=== PATIENT | female | born 1945 | race Caucasian/White ===

== ENCOUNTER 2020-04-28 06:38 | Outpatient (REF) | payer OTHER, SELFPAY ==
[2020-04-28 08:40] LABS: Estimated Average Glucose 123 mg/dL; Hemoglobin A1c % 5.9 %
[2020-04-28 08:58] LABS: Alanine Aminotransferase 31 U/L (0-31); Albumin Level 4.2 g/dL (3.5-5.0); Alkaline Phosphatase 56 U/L (39-117); Anion Gap 12 (12-20); Aspartate Amino Transferase 29 U/L (5-31); Bilirubin Total 0.9 mg/dL (0.0-1.0); Blood Urea Nitrogen 16 mg/dL (9-16); Calcium 8.4 mg/dL (8.4-10.2); Carbon Dioxide 29 mmol/L (22-29); Chloride 103 mmol/L (96-108); Estimated Glomerular Filt Rate > 60; Glucose Random 98 mg/dL (60-115); Potassium 3.6 mmol/l (3.3-5.1); Sodium 140 mmol/L (135-145); Total Protein 7.1 g/dL (6.5-8.0)
== END 2020-04-28 06:39 | disposition home or self-care (01) ==
LOC: HO.LAB 06:38
PROVIDERS: Visit Provider Internal Medicine
DX: R79.89 Other specified abnormal findings of blood chemistry (principal)
CPT/HCPCS: 80053; 83036

== ENCOUNTER 2020-06-06 13:23 | Outpatient (REF) | payer OTHER, SELFPAY | END 2020-06-06 13:24 | disposition home or self-care (01) | LOC: HO.LAB 13:23 | PROVIDERS: PCP Internal Medicine; Visit Provider Internal Medicine | DX: Z20.828 Contact with and (suspected) exposure to other viral communicable diseases (principal) | CPT/HCPCS: C9803; U0003 ==

== ENCOUNTER 2020-07-31 06:02 | Outpatient (REF) | payer OTHER, SELFPAY | END 2020-07-31 06:03 | disposition home or self-care (01) | LOC: HO.LAB 06:02 | PROVIDERS: Visit Provider Internal Medicine | DX: Z13.89 Encounter for screening for other disorder (principal) ==

== ENCOUNTER 2020-07-31 06:24 | Outpatient (REF) | payer OTHER, SELFPAY | END 2020-07-31 06:25 | disposition home or self-care (01) | LOC: HO.LAB 06:24 | PROVIDERS: PCP Internal Medicine; Visit Provider Internal Medicine | DX: Z20.822 Contact with and (suspected) exposure to COVID-19 (principal) | CPT/HCPCS: 36415; C9803; U0003 ==

== ENCOUNTER 2020-08-01 12:45 | Outpatient (REF) | payer OTHER, SELFPAY | END 2020-08-01 12:46 | disposition home or self-care (01) | LOC: HO.LAB 12:45 | PROVIDERS: Visit Provider Internal Medicine | DX: Z13.89 Encounter for screening for other disorder (principal) ==

== ENCOUNTER 2021-07-05 11:27 | Emergency (ER) | payer OTHER, SELFPAY ==
[2021-07-05 12:27] VITALS: BP 157/70; PULSE 86; RESP 16; TEMP 36.3; O2SAT 97; BMI 25.7
--- NOTE | 2021-07-05 20:25 | ED_ITS ---
HPI - Dental/Oral General Chief complaint: Dental/Oral Stated complaint: blister on face Time Seen by Provider: 07/05/21 20:25 Source: patient Mode of arrival: ambulatory Limitations: no limitations and language barrier History of Present Illness HPI Narrative: Patient noticed rash on the upper lip for last 4 days getting worse with small folliculitis with purulent Discharge no dental abscess no fever otherwise patient feels okay Related Data Previous Rx's Medication Instructions Recorded cephalexin 500 mg capsule 500 mg PO QID 10 Days #40 cap 07/05/21 doxycycline hyclate 100 mg tablet 100 mg PO BID #20 tab 07/05/21 mupirocin 2 % topical ointment 1 appl TOPICAL BID #15 g 07/05/21 Allergies Allergy/AdvReac Type Severity Reaction Status Date / Time Motrin Allergy Unknown Unknown Uncoded 07/05/21 12:27 Review of Systems Review of Systems: Yes all other systems are reviewed and are negative PMFSH Past Medical History Medical History Herpes Social History Social History Advance Directives: No Advance Directives Information Provided: Yes Physical Exam Vital Signs: Vital Signs: Last Vital Signs Temp 97.3 F 07/05/21 12:27 Pulse 86 07/05/21 12:27 Resp 16 07/05/21 12:27 BP 157/70 H 07/05/21 12:27 Pulse Ox 97 07/05/21 12:27 BMI result Body Mass Index 25.7 Const: General: comfortable and no acute distress Orientation/consciousness: patient oriented x3 HENMT: Nose image: 1. Reason mattress area with folliculitis with [place] color serous discharge likely staph infection with cellulitis, sample taken for culture Teeth and gingiva: dentition normal and gingiva normal Throat: Yes posterior oropharynx normal Resp: Effort & Inspection: normal respiratory effort Auscultation: clear to auscultation bilaterally Cardio: Palpation: normal PMI Rate: regular rate Rhythm: regular rhythm Heart sounds: S1 normal heart sound present and S2 normal heart sound present Neuro: General: patient oriented x3 MDM - Dental/Oral MDM Narrative Medical decision making narrative: Patient was folliculitis with serous discharge likely staph will get discharged patient home on doxy and cephalexin sent culture was taken advised to come to the ER in case worsening of the redness or fever Discharge Plan Discharge Clinical Impression: Cellulitis of face Patient Disposition: Home, Self-Care Instructions: Cellulitis (ED) Additional Instructions: Take antibiotic as prescribed Apply Bactroban ointment twice daily Report to the ER if swelling gets worse/fever Mellen antibi?aixa seg?n lo prescrito Aplique el tejinder?ento de Bactroban dos veces al d?a. Informe a la robel de emergencias si la hinchaz?n empeora / fiebre Prescriptions: New cephalexin 500 mg capsule 500 mg PO QID 10 Days Qty: 40 RF: 0 doxycycline hyclate 100 mg tablet 100 mg PO BID Qty: 20 RF: 0 mupirocin 2 % ointment 1 appl topical BID Qty: 15 RF: 0 Interventions: ED Discharge Assessment Last Done: 07/05/21 21:13 Discharge Date/Time: 07/05/21 21:14 Print Language: Armenian
[2021-07-05] MEDS: cephALEXin 500 MG CAPSULE PO (20:45)
== END 2021-07-05 21:14 | disposition home or self-care (01) ==
PROVIDERS: Emergency Provider Internal Medicine; PCP Internal Medicine Geriatric Medicine
DX: L03.211 Cellulitis of face (principal)
CPT/HCPCS: 87071; 87205; 99283

== ENCOUNTER 2021-10-21 10:48 | Outpatient (REF) | payer OTHER, SELFPAY ==
--- NOTE | ~2021-10-21 | MM_ITS ---
EXAMINATION: BONE DENSITOMETRY CLINICAL INDICATION: Osteoporosis. COMPARISON: None (current study represents initial baseline exam). TECHNIQUE: Using a [employer] - Smartphone RFID DXA System (software version: 13.1) manufactured by [employer], dual-energy x-ray absorptiometry was performed of the lumbar spine and left hip. The images are of good technical quality. Summary results are attached. FINDINGS: AP SPINE L1-L4: BMD 0.703 g/cm2, Z-score -2.0, T-score -4.0, osteoporosis. LEFT FEMUR, NECK: BMD 0.708 g/cm2, Z-score -0.2, T-score -2.4, osteopenia. LEFT FEMUR, TOTAL: BMD 0.840 g/cm2, Z-score 0.7, T-score -1.3, osteopenia. IDENTIFIED RISK FACTORS: Dementia, history of fracture (adult), osteoporosis, thiazide, menopause, hysterectomy, unilateral oophorectomy. HISTORY OF FRACTURE: Other/rib. MEDICATIONS: None listed. MM/XR DEXA axial skeleton IMPRESSION: 1. DIAGNOSIS: Osteoporosis based on the lowest T-score value of -4.0 in the lumbar spine applying World Health Organization criteria. 2. 10-YEAR FRACTURE RISK PREDICTION, FRAX: According to the guidelines, FRAX calculation should only be performed on patients in the osteopenia bone density category. Therefore, FRAX was not performed on this patient. 3. Treatment Recommendations: NOF guidelines recommend consideration for treatment in postmenopausal women and men age 50 and older presenting with the following: -A hip or vertebral (clinical or morphometric) fracture. -T-score less than or equal to -2.5 at the femoral neck or spine after appropriate evaluation to exclude secondary causes. -Low bone mass at the hip or spine and a 10-year fracture probability by FRAX of greater than or equal to 3% for hip fracture or greater than or equal to 20% for major osteoporotic fracture based on the [place] adapted WHO algorithm. 4. Other Recommendations: All treatment decisions require clinical judgment and consideration of individual patient factors, including patient preferences, comorbidities, previous drug use, risk factors not captured in the FRAX model (e.g. frailty, falls, vitamin D deficiency, increased bone turnover, interval significant decline in bone density) and possible under or overestimation of fracture risk by FRAX. Additional medical evaluation for secondary cause of low bone mineral density may be appropriate. FUTURE SCAN RECOMMENDATION: People with diagnosed cases of osteoporosis or at high risk for fracture should have regular bone mineral density tests. For patients eligible for Medicare, routine testing is allowed once every 2 years. The testing frequency can be increased to one year for patients who have rapidly progressing disease, those who are receiving or discontinuing medical therapy to restore bone mass, or have additional risk factors.
== END 2021-10-21 10:49 | disposition home or self-care (01) ==
LOC: HO.MAMMO 10:48
PROVIDERS: PCP Internal Medicine Geriatric Medicine; Visit Provider Internal Medicine Geriatric Medicine
DX: Z13.820 Encounter for screening for osteoporosis (principal); Z78.0 Asymptomatic menopausal state; M81.0 Age-related osteoporosis without current pathological fracture
CPT/HCPCS: 77080

== ENCOUNTER → 2022-08-09 13:27 | Outpatient (BNVA) | payer OTHER, SELFPAY | PROVIDERS: PCP Internal Medicine Geriatric Medicine; Visit Provider Internal Medicine Cardiovascular Disease | DX: Z01.810 Encounter for preprocedural cardiovascular examination (principal); I44.7 Left bundle-branch block, unspecified; I10 Essential (primary) hypertension | CPT/HCPCS: 93005; 99202 ==

== ENCOUNTER → 2022-09-15 07:55 | Outpatient (REF) | payer OTHER, SELFPAY ==
--- NOTE | 2022-09-15 08:01 | CA_ITS ---
Transthoracic Echocardiogram Patient (Last, First, Middle): Nona Anguiano, Gender: Female Date of : 1945 Age: 76 Procedure Date: 09/15/2022 Procedure Type: Transthoracic Echocardiogram Location: OP Height: 144.78 cm Weight: 67.59 kg BSA: 1.59 m2 Heart Rate: 90 bpm BP: 132 / 74 mmHg Virtualization Architect: MANUELITO Referring MD: Sea Last MD Mechanical Engineering Director: Sea Last MD Symptoms: I44.7 - Left bundle-branch block, unspecified Study Quality: Adequate w contrast ECG Rhythm: Sinus Conclusions: - Normal left ventricular size, thickness, systolic function, and wall motion. The visually estimated ejection fraction is between 65-70%. - Normal right ventricular cavity size and systolic function. - Mild pulmonary hypertension is present. - Moderate plaque is seen in the descending thoracic aorta. Findings Procedure Information Contrast agent, definity, is being given per protocol without apparent complications. Left Ventricle Normal left ventricular size, thickness, systolic function, and wall motion. The visually estimated ejection fraction is between 65-70%. There is no evidence of regional wall motion abnormalities. Diastolic function is indeterminate on the basis of available data. Right Ventricle Normal right ventricular cavity size and systolic function. Atria Both atria are normal in size. Aortic Valve Normal aortic valve structure and function. There is no aortic valve stenosis. There is no aortic valve regurgitation. Mitral Valve Normal mitral valve structure and function. There is no mitral valve regurgitation. There is no mitral valve stenosis. Pulmonic Valve The pulmonic valve is likely normal. Tricuspid Valve Normal tricuspid valve structure. There is trace tricuspid valve regurgitation. Normal right atrial pressure. Mild pulmonary hypertension is present. Great Vessels All visible segments of the aorta are normal in size. Moderate plaque is seen in the descending thoracic aorta. The visualized portions of the pulmonary artery and branches are normal. Venous The inferior vena cava is normal in size and collapses greater than 50% with inspiration. Pericardium/Pleural There is no evidence of pericardial effusion. Prior Study Comparison No prior study available for comparison. Measurements 2D Linear Measurements IVSd: 0.93 0.6-0.9/0.6-1.0 cm LVIDd: 4.58 3.9-5.3/4.2-5.9 cm LVIDd Index: 24.11 2.4-3.2/2.2-3.1 cm/m2 LVIDs: 3.03 2.0-3.6 cm LVPWd: 0.59 0.7-1.1 cm LA Diam: 3.40 2.7-3.8/3.0-4.0 cm LAIDs Index: 17.89 1.5-2.3 cm/m2 LV Mass: 135.91 67-162/88-224 g LV Mass Index: 715.33 43-95/49-115 g/m2 LVOT Diam: 1.90 3.0+(-)1.3 cm 2D Systolic Function EF 4C: 76.60 >55% EF 2C: 68.20 >55% EF BiP: 73.10 >55% Mitral Valve MV Pk E: 0.82 MV PK A: 1.17 MV Decel Time: 165.00 E/A: 0.70 E'Lateral: 7.51 E'Medial: 5.87 E/E' Med: 13.90 E/E' Lat: 10.90 PHT: 48.00 MVA PHT: 4.58 Decel [place]: 4.95 Aortic Valve AoV Pk Irineo: 1.43 AoV Pk Grad: 8.00 DAVID: 2.58 LVOT LVOT Pk Irineo: 1.23 LVOT Mn Irineo: 0.85 LVOT VTI: 0.22 LVOT Pk Grad: 6.00 LVOT Mn Grad: 4.00 LVOT Diam: 1.90 LVOT Area: 2.84 Diastolic Function MV Pk E: 0.82 MV Pk A: 1.17 E/A: 0.70 E'Medial: 5.87 E/E' Med: 13.90 E' Laterial: 7.51 E/E' Lat: 10.90 Right Ventricle TAPSE (mm): 23.00 TVS' Irineo: 16.00 Tricuspid Valve TR Pk Irineo: 2.97 TR Pk Grad: 35.00 RA Press: 3.00 RVSP: 38.00 Great Vessels Aorta Sinus of Valsalva: 2.40 2.0-3.5 cm Ao Asc: 3.10 2.1-3.4 cm Pulmonary Veins Pulm Vein S/D 2.00 Pulmonary Valve PV Pk Irineo: 1.45 Peak PV Grad: 8.00 Updated in Other Vendor System with Status of Final Sea Last MD electronically signed on 09/19/2022 5:35:02 PM with status of Final
== END ==
LOC: HO.CARD 07:55
PROVIDERS: Visit Provider Internal Medicine Cardiovascular Disease
DX: I44.7 Left bundle-branch block, unspecified (principal)
CPT/HCPCS: 93306; Q9957

== ENCOUNTER 2022-11-24 08:35 | Outpatient (REF) | payer OTHER, SELFPAY ==
--- NOTE | ~2022-11-24 | XR_ITS ---
EXAMINATION: XR RIBS, BILATERAL CLINICAL INFORMATION: Lower chest injury COMPARISON: Chest and left RIBS 09/15/2016 TECHNIQUE: 4 views of the bilateral ribs were obtained. FINDINGS: Lungs are clear. No consolidation, pneumothorax, or pleural effusion. The cardiomediastinal silhouette and pulmonary vasculature are normal. Osseous structures are unremarkable. Ribs are intact. No fractures are identified. XR/XR ribs BI 3V IMPRESSION: Unremarkable examination.
== END 2022-11-24 08:36 | disposition home or self-care (01) ==
LOC: HO.HHCX 08:35
PROVIDERS: Visit Provider Internal Medicine
DX: S29.9XXD Unspecified injury of thorax, subsequent encounter (principal)
CPT/HCPCS: 71110

== ENCOUNTER → 2022-12-01 15:38 | Outpatient (BNVA) | payer OTHER, SELFPAY | PROVIDERS: PCP Internal Medicine Geriatric Medicine; Referring Provider Internal Medicine Geriatric Medicine; Visit Provider Internal Medicine Cardiovascular Disease | DX: I44.7 Left bundle-branch block, unspecified (principal); I10 Essential (primary) hypertension; E78.5 Hyperlipidemia, unspecified | CPT/HCPCS: 99212 ==